=== PATIENT | male | born 1950 | race Hispanic/Latino ===

== ENCOUNTER 2023-10-15 14:18 | Emergency (ER) | payer OTHER ==
[~2023-10-15] VITALS: Ht 175.3 cm; Wt 78.9 kg
[2023-10-15] MEDS: HYDROCODONE/ACETAMINOPHEN 5/325 MG TAB PO ONE (16:44)
[2023-10-15] MEDS: TAMSULOSIN HCL 0.4 MG CAP.ER.24H PO ONE (16:44)
[2023-10-15 17:02] LABS: HEMATOCRIT 42.8 % (42-54); MEAN CORPUSCULAR HEMOGLOBIN 29.8 pg (27.0-33.0); MEAN CORPUSCULAR HGB CONC 33.2 g/dL (32.0-36.0); MEAN CORPUSCULAR VOLUME 89.7 fL (79-99); RED BLOOD CELL COUNT(AUTO) 4.77 MIL/uL (4.50-6.20); RED CELL DISTRIBUTION WIDTH 13.1 % (11.0-15.5); WHITE BLOOD COUNT (AUTO) 8.7 K/uL (4.8-10.8)
[2023-10-15 17:03] LABS: CREATININE 1.9 mg/dL (0.5-1.3); POTASSIUM 4.4 mmol/L (3.5-5.1)
[2023-10-15 17:12] LABS: APPEARANCE,URINE CLOUDY (CLEAR); BILIRUBIN,URINE NEGATIVE (NEGATIVE); COLOR,URINE YELLOW (YELLOW); GLUCOSE, URINE (UA) 70 mg/dL (NEGATIVE); KETONES,URINE NEGATIVE (NEGATIVE); LEUKOCYTE ESTERASE ,URINE NEGATIVE Leu/uL (NEGATIVE); NITRATE,URINE NEGATIVE (NEGATIVE); OCCULT BLOOD,URINE LARGE (NEGATIVE); PROTEIN,URINE 10 mg/dL (NEGATIVE); UROBILINOGEN,URINE 0.2 mg/dL (0.2-1.0)
[2023-10-15 17:19] LABS: ADD UA MICROSCOPIC YES
[2023-10-15 17:20] LABS: BACTERIA,URINE RARE /HPF (None Seen); RBC,URINE TNTC /HPF (0-1); SQUAMOUS EPITHELIAL CELL,UR RARE /HPF (0-2)
[2023-10-15] MEDS ORDERED: TAMS-1 PO (18:39)
[2023-10-15 18:42] VITALS: BP 121/51; PULSE 81; RESP 18; O2SAT 97
== END 2023-10-15 18:44 | disposition home or self-care (01) ==
LOC: EDH 14:18
DX: R33.9 Retention of urine, unspecified (principal); I10 Essential (primary) hypertension; E11.9 Type 2 diabetes mellitus without complications; Z86.73 Personal history of transient ischemic attack (TIA), and cerebral infarction without residual deficits; Z98.890 Other specified postprocedural states
CPT/HCPCS: 36415; 80048; 81001; 85027